=== PATIENT | female | born 1935 | race Caucasian/White ===

== ENCOUNTER 2018-02-22 14:09 | Inpatient (IN) ==
[2018-02-22] MEDS ORDERED: *HR* OxyCODONE Immed Rel 5 MG TABLET PO PRN (20:24)
[2018-02-22] MEDS: Famotidine 20 MG TABLET PO SCH (22:25)
[2018-02-22] MEDS: *HR* OxyCODONE Immed Rel 5 MG TABLET PO PRN (22:26)
[2018-02-22] MEDS: Latanoprost 2.5 ML BOTTLE BOTH EYES SCH (22:26)
[2018-02-23 05:16] LABS: INR 1.1
[2018-02-23 05:17] LABS: Basophils # 0.1 K/mcL (0.0-0.2); Basophils % 0.8 %; Eosinophils # 0.2 K/mcL (0.0-0.6); Eosinophils % 2.3 %; Hematocrit 35.9 % (35.3-44.9); Hemoglobin 12.1 g/dL (11.5-15.4); Immature Granulocytes % 0.5 % (0-4); Lymphocytes # 2.2 K/mcL (0.6-4.6); Lymphocytes % 25.2 %; Mean Corpuscular HGB Conc 33.7 g/dL (31.6-35.5); Mean Corpuscular Hemoglobin 33.2 pg (28.0-33.3); Mean Corpuscular Volume 98.6 fL (83.0-100.0); Mean Platelet Volume 10.8 fL (9.4-12.4); Monocytes % 11.3 %; Neutrophils # 5.2 K/mcL (1.6-8.9); Platelet Count 203 K/mcL (140-400); Red Blood Count 3.64 M/mcL (3.82-4.97); Segmented Neutrophils % 59.9 %
[2018-02-23 05:28] LABS: BUN/Creatinine Ratio 18 (6-26); Blood Urea Nitrogen 11 mg/dL (8-23); Carbon Dioxide 31 mEq/L (23-29); Chloride 100 mEq/L (98-107); Glucose 116 mg/dL (70-105); Osmolality,Calculated 282 (280-300); Potassium 4.2 mEq/L (3.5-5.1); Sodium 136 mEq/L (136-145); eGFR For Non-African Americans > 60 (> 60)
[2018-02-23] MEDS: *HR* OxyCODONE Immed Rel 5 MG TABLET PO PRN (06:44)
[2018-02-23] MEDS: Sennosides/Docusate Sodium TABLET PO SCH (08:12)
[2018-02-23] MEDS: Celecoxib 200 MG CAPSULE PO SCH (08:12)
[2018-02-23] MEDS: Lisinopril 20 MG TABLET PO SCH (08:13)
[2018-02-23] MEDS: Famotidine 20 MG TABLET PO SCH ×2 (08:13→20:41)
[2018-02-23] MEDS: Multivit/Ca/Min/Fe/FA 1 TAB TABLET PO SCH (08:13)
[2018-02-23] MEDS: CO Q10 100 MG PO SCH (08:13)
[2018-02-23] MEDS: Cholecalciferol (D-3) 1,000 UNIT TABLET PO SCH (08:13)
[2018-02-23] MEDS: (Glucosamine Sulfate Dipot Chlr [Glucosamine] 1,000 M) PO SCH (08:14)
--- NOTE | 2018-02-23 12:12 | Internal Med History&Physical ---
Addendum entered and electronically signed by Joselyn Phillip 02/23/18 18:26: I have personally performed a face to face evaluation on this patient. I have reviewed and agree with the care plan. She has had severe constipation and impaction before transfer. She would like enema. Will order this and increase her miralax. She is eating and denies abd pain. She is alert and cooperative. Original Note: Date of Encounter: 02/23/18 Time of Encounter: 12:11 Assessment and Plan (1) Status post reverse total replacement of left shoulder Current visit: Yes Status: Acute No acute issues. Patient admitted to this facility for further rehabilitation secondary to deconditioning of left shoulder after a total left shoulder replacement. When short surgical incision appears healthy. Patient currently has increased pain with activity noted during therapy, but states that her current pain medications have been effective. We will continue to evaluate patient's pain status. We will continue with current therapy (2) HTN (hypertension) Current visit: No Status: Chronic No acute issues. Vital signs are stable. We will continue with current medications. Qualifiers: Hypertension type: essential hypertension Qualified Code(s): I10 - Essential (primary) hypertension Internal Medicine - H&P: HPI Chief complaint: Left total shoulder replacement Admitted From: Hospital to Hospital Transfer Plans for Post Hospital Care: Home History of present illness: Ms. Robles is a 83 year old female who was admitted to this facility for further rehabilitation due to deconditioning related to a left total shoulder replacement. Patient also is here for pain management. Patient had a left total shoulder replacement was performed on 02/19/2018 and had a uneventful recovery [facility] Patient was transferred to this facility for further rehabilitation. Patient states she continues to have moderate pain to her left shoulder that intensifies during range of motion. A sharp remains nonweightbearing for the left shoulder but does have a series of exercises that she performs with physical therapy that increases her pain. Patient states that her pain is tolerable with current medications. Denies any other discomforts or shortness of breath. Past Med Surg Social Fam HX - Past Medical History Medical history: arthritis, CVA, glaucoma, hyperlipidemia, hypertension Additional medical history: Spastic bladder Psychiatric history: no psych history - Past Surgical History Additional surgical history: Left TSR, Right Hip - Social History Smoking Status: 2nd Hand Smoke Exposure Smokeless Tobacco Status: No Alcohol use: none Drug use: none - Family History Mother Living Status: Hx Family Cardiac Disorders: Yes Father Living Status: Hx Family Cardiac Disorders: Yes Internal Medicine - H&P: Meds Alendronate Sodium 70 mg PO MO 02/19/18 [History] Atorvastatin Calcium [Lipitor] 20 mg PO HS 02/19/18 [History] Celecoxib [Celebrex] 200 mg PO DAILY 02/19/18 [History] Cholecalciferol (D-3) [Vitamin D] 2,000 unit PO DAILY 02/19/18 [History] Clopidogrel [Plavix] 75 mg PO DAILY 02/19/18 [History] Glucosamine Sulfate Dipot Chlr [Glucosamine] 1,000 mg PO DAILY 02/19/18 [History] Latanoprost [Xalatan] 1 drop BOTH EYES HS 02/19/18 [History] Lisinopril [Zestril] 20 mg PO DAILY 02/19/18 [History] Loratadine [Allergy Relief] 10 mg PO DAILY 02/19/18 [History] Multivitamin [One Daily Essential] 1 tab PO DAILY 02/19/18 [History] Oxybutynin Chloride [Ditropan Xl] 10 mg PO DAILY 02/19/18 [History] Timolol Maleate 0.5% 1 drop BOTH EYES BID 02/19/18 [History] Ubidecarenone/Vit E Acetate [Co Q-10 100 mg Softgel] 1 cap PO DAILY 02/19/18 [History] OxyCODONE Immed Rel [Roxicodone 5 MG] 5 mg PO Q4HR PRN MDD PAin 02/22/18 [History] Allergy/AdvReac Type Severity Reaction Status Date / Time bromide salts Allergy Hives Verified 02/19/18 07:34 fentanyl AdvReac Rash Verified 02/19/18 07:34 All Systems PM: A 10-system review of systems was performed and is negative for pertinent findings except as documented above in the HPI. - Constitutional Constitutional: as per HPI, no chills, no fever(s), no night sweats - EENT Eyes: as per HPI, no change in vision, no discharge, no pain, no photophobia Ears: no ear discharge, no ear pain, no tinnitus Nose, mouth and throat: no dysphagia, no nasal discharge, no neck pain, no sore throat - Cardiovascular Cardiovascular ROS IM: as per HPI, no chest pain, no diaphoresis, no dyspnea, no lightheadedness, no palpitations, no syncope - Respiratory Respiratory: as per HPI, no cough, no dyspnea, no wheezing, no excessive phlegm production - Gastrointestinal Gastrointestinal: as per HPI, no abdominal pain, no diarrhea, no hematemesis, no hematochezia, no melena, no nausea, no vomiting - Genitourinary Genitourinary: as per HPI, no change in urinary stream, no dysuria, no flank pain, no hematuria - Musculoskeletal Musculoskeletal ROS IM: as per HPI, no numbness, no tingling - Integumentary Integumentary IM: as per HPI, no rash, no unusual bruising - Neurological Neurological ROS: no confusion, no convulsions, no focal weakness, no numbness, no tingling, no tremor(s) - Hematologic/Lymphatic Hematologic/Lymphatic: no easy bruising - Constitutional Vitals: Temp Pulse Resp BP Pulse Ox 97.9 F 75 116 122/76 100 02/23/18 11:58 02/23/18 11:58 02/23/18 11:58 02/23/18 11:58 02/23/18 11:58 General appearance: Present: A&O X 3, pleasant - Head Head exam: Present: atraumatic, normocephalic - Eye Eye exam: Present: PERRL, conjuntiva pink, sclera anicteric Pupils: Present: PERRL - Neck Neck exam general surgery: Present: supple, trachea midline. Absent: lymphadenopathy - Respiratory Respiratory exam: Present: CTAB. Absent: accessory muscle use, rales, rhonchi, wheezes - Cardiovascular Cardiovascular exam: Present: RRR, +S1, +S2. Absent: diastolic murmur, gallop, rubs, systolic murmur - GI/Abdominal GI/Abdominal exam: Present: normal bowel sounds, soft, no peritoneal signs. Absent: distended, tenderness - Extremities Exam Extremities exam: Present: warm, radial pulses palpable and symmetrical. Absent: calf tenderness, cyanotic, pedal edema Additional comments: Left shoulder remains slightly swollen with surgical incision appearing dry and intact. Left eye remains in a sling for nonweightbearing - Neurological Exam Neurological exam: Present: CN II-XII intact, oriented X3, no focal deficits. Absent: pronater drift, facial droop, speech deficit - Skin Skin exam: Present: dry, intact Internal Med - H&P Results - Labs CBC & Chem 7: 02/23/18 05:04 02/23/18 05:04 Labs: Short CBC 02/23/18 Range/Units 05:04 WBC 8.6 (4.3-11.1) K/mcL Hgb 12.1 (11.5-15.4) g/dL Hct 35.9 (35.3-44.9) % Plt Count 203 (140-400) K/mcL Neutrophils # 5.2 (1.6-8.9) K/mcL BMP 02/23/18 05:04 Sodium 136 Potassium 4.2 Chloride 100 Carbon Dioxide 31 H BUN 11 Creatinine 0.60 Glucose 116 H Calcium 9.0 - VTE Documentation of Mechanical Device: Graduated compression elastic hosiery
[2018-02-23] MEDS: Latanoprost 2.5 ML BOTTLE BOTH EYES SCH (20:46)
[2018-02-24] MEDS: Cholecalciferol (D-3) 1,000 UNIT TABLET PO SCH (08:06)
[2018-02-24] MEDS: Sennosides/Docusate Sodium TABLET PO SCH (08:07)
[2018-02-24] MEDS: Multivit/Ca/Min/Fe/FA 1 TAB TABLET PO SCH (08:07)
[2018-02-24] MEDS: Lisinopril 20 MG TABLET PO SCH (08:07)
[2018-02-24] MEDS: CO Q10 100 MG PO SCH (08:07)
[2018-02-24] MEDS: (Glucosamine Sulfate Dipot Chlr [Glucosamine] 1,000 M) PO SCH (08:07)
[2018-02-24] MEDS: Celecoxib 200 MG CAPSULE PO SCH (08:07)
[2018-02-24] MEDS: Famotidine 20 MG TABLET PO SCH ×2 (08:07→19:55)
[2018-02-24] MEDS: *HR* OxyCODONE Immed Rel 5 MG TABLET PO PRN (12:25)
[2018-02-24] MEDS: Psyllium 1 PACKET POWD.PACK PO SCH (19:59)
[2018-02-24] MEDS: Latanoprost 2.5 ML BOTTLE BOTH EYES SCH (19:59)
[2018-02-25 01:27] LABS: Bilirubin,Urine Negative (Negative); Blood,Urine Trace-lysed (Negative); Clarity,Urine Clear (Clear); Color,Urine Yellow (Yellow); Glucose,Urine (UA) Normal (Normal); Ketones,Urine Negative (Negative); Leukocyte Esterase,Urine Large (Negative); Nitrite,Urine Positive (Negative); Protein,Urine Negative (Neg-Trace); Urobilinogen,Urine Normal (Normal)
[2018-02-25 01:45] LABS: Bacteria,Urine Many per hpf (None-Few); RBC,Urine 0-3 per hpf (0-3); Squamous Epithelial Cell,Urine Few per lpf (None-Few); WBC,Urine 30-50 per hpf (0-3)
[2018-02-25] MEDS: *HR* OxyCODONE Immed Rel 5 MG TABLET PO PRN (04:34)
[2018-02-25 05:58] LABS: Thyroid Stimulating Hormone 2.065 mcIU/mL (0.340-5.600)
[2018-02-25] MEDS: Celecoxib 200 MG CAPSULE PO SCH (07:51)
[2018-02-25] MEDS: Sennosides/Docusate Sodium TABLET PO SCH (07:51)
[2018-02-25] MEDS: Lisinopril 20 MG TABLET PO SCH (07:51)
[2018-02-25] MEDS: Famotidine 20 MG TABLET PO SCH ×2 (07:51→20:01)
[2018-02-25] MEDS: Psyllium 1 PACKET POWD.PACK PO SCH ×3 (07:52→20:10)
[2018-02-25] MEDS: (Glucosamine Sulfate Dipot Chlr [Glucosamine] 1,000 M) PO SCH (07:52)
[2018-02-25] MEDS: Cholecalciferol (D-3) 1,000 UNIT TABLET PO SCH (07:52)
[2018-02-25] MEDS: CO Q10 100 MG PO SCH (07:52)
[2018-02-25] MEDS: Multivit/Ca/Min/Fe/FA 1 TAB TABLET PO SCH (07:52)
--- NOTE | 2018-02-25 11:16 | Internal Med Progress Note ---
Date of Encounter: 02/24/18 Time of Encounter: 16:00 - Subjective Interval history: INTERVAL HISTORY: 83 YO WF admit to rehab unit 02-23 after let shoulder replaced. She states is fatigued and remains very constipated. She is able to eat and is not vomiting, passing gas. Says she tends toward constipation. Says she was impacted at hospital prior to transfer and was disimpacted. Denies bleeding or abd pain just feels very full. She is alert and oriented and soft spoken. She denies chills no fevers. Pain is controlled She is participating in therapy. Assessment and Plan (1) Status post reverse total replacement of left shoulder with deconditioning Current visit: Yes Status: Acute No acute issues. Patient admitted to this facility for further rehabilitation secondary to deconditioning of left shoulder after a total left shoulder replacement. When short surgical incision appears healthy. Patient currently has increased pain with activity noted but states that her current pain medications have been effective. We will continue to evaluate patient's pain s tatus. She is improving. We will continue with current therapy (2) HTN (hypertension) Current visit: No Status: Chronic stable No acute issues. Vital signs are stable. We will continue with current medications. Qualifiers: Hypertension type: essential hypertension Qualified Code(s): I10 - Essential (primary) hypertension (3) Constipation acute on chronic recent impaction resolved benign abd will increase miralax will use soap suds enema ( pt reports fleet ineffective) if not result, will order xray abd (4) bladder irritation says hx of spasm uses ditropan discussed will order urinalysis and culture Allergy/AdvReac Type Severity Reaction Status Date / Time bromide salts Allergy Hives Verified 02/19/18 07:34 fentanyl AdvReac Rash Verified 02/19/18 07:34 EXAM General appearance: Present: A&O X 3, pleasant - Head Head exam: Present: atraumatic, normocephalic - Eye Eye exam: Present: PERRL, conjuntiva pink, sclera Pupils: Present: PERRL - Neck Neck exam general surgery: Present: supple, trachea midline. Absent: lymphadenopathy - Respiratory Respiratory exam: Present: CTAB. Absent: accessory muscle use, rales, rhonchi, wheezes - Cardiovascular Cardiovascular exam: Present: RRR, +S1, +S2. Absent: diastolic murmur, gallop, rubs, systolic murmur - GI/Abdominal GI/Abdominal exam: Present: hypo l bowel sounds, soft, no peritoneal signs. Absent: distended, tenderness - Extremities Exam Extremities exam: Present: warm, radial pulses palpable and symmetrical. Absent: calf tenderness, cyanotic, pedal edema Additional comments: Left shoulder : surgical incision appearing dry and intact. - Neurological Exam Neurological exam: Present: CN II-XII intact, oriented X3, no focal deficits. Absent: pronater drift, facial droop, speech deficit - Skin Skin exam: Present: dry, intact - Constitutional Vitals: Temp Pulse Resp BP Pulse Ox 98.3 F 81 18 159/72 95 02/25/18 07:24 02/25/18 07:24 02/25/18 07:24 02/25/18 07:24 02/25/18 07:24 General appearance: Present: A&O X 3, pleasant Internal Medicine: Result - Labs CBC & Chem 7: 02/23/18 05:04 02/23/18 05:04 Labs: Urine 02/25/18 Range/Units 00:42 Urine Color Yellow (Yellow) Urine Clarity Clear (Clear) Urine pH 7.0 (5.0-8.0) pH Units Ur Specific [place] 1.010 (1.010-1.025) Urine Protein Negative (Neg-Trace) mg/dL Urine Glucose (UA) Normal (Normal) mg/dL - ABG Interpretation ABG results: PT/INR, D-dimer PT 12.0 Seconds (9.4-12.1) 02/23/18 05:04 - VTE Documentation of Mechanical Device: Graduated compression elastic hosiery Consult Discharge Plan - Plan Referrals: Jenny Mccann DO [Primary Care Provider] -
--- NOTE | 2018-02-25 11:20 | Internal Med Progress Note ---
Date of Encounter: 02/25/18 Time of Encounter: 11:17 - Subjective Interval history: INTERVAL HISTORY: 83 YO WF admit to rehab unit 02-23 after let shoulder replaced. She states her constipation is improved she had good relief from soap suds enema.. She is able to eat and is not vomiting, passing gas. Says she tends toward constipation. Says she was impacted at hospital prior to transfer and was disimpacted. Denies bleeding or abd pain . Doing better today. Still with dysuria. UA postitive. culture pend. She is alert and oriented and soft spoken. She denies chills no fevers. Shoulder Pain is controlled She is participating in therapy. Assessment and Plan (1) Status post reverse total replacement of left shoulder with deconditioning Current visit: Yes Status: Acute No acute issues. Patient admitted to this facility for further rehabilitation secondary to deconditioning of left shoulder after a total left shoulder replacement. When short surgical incision appears healthy. Patient currently has increased pain with activity noted but states that her current pain medications have been effective. We will continue to evaluate patient's pain status. She is improving. We will continue with current therapy (2) HTN (hypertension) Current visit: No Status: Chronic stable No acute issues. Vital signs are stable. We will continue with current medications. Qualifiers: Hypertension type: essential hypertension Qualified Code(s): I10 - Essential (primary) hypertension (3) Constipation acute on chronic recent impaction resolved benign abd doing well with increase miralax will add fiber had relief from soap suds enema will not repeat for now pt appetite very good today (4) bladder irritation says hx of spasm uses ditropan discussed had pos urinalysis and culture pend will start cefdiner 4 days Allergy/AdvReac Type Severity Reaction Status Date / Time bromide salts Allergy Hives Verified 02/19/18 07:34 fentanyl AdvReac Rash Verified 02/19/18 07:34 EXAM General appearance: Present: frail WF thin A&O X 3, pleasant up in chair - Head Head exam: Present: atraumatic, normocephalic - Eye Eye exam: Present: PERRL, conjuntiva pink, sclera Pupils: Present: PERRL - Neck Neck exam general surgery: Present: supple, trachea midline. Absent: lymphadenopathy - Respiratory Respiratory exam: Present: CTAB. Absent: accessory muscle use, rales, rhonchi, wheezes - Cardiovascular Cardiovascular exam: Present: RRR, +S1, +S2. Absent: diastolic murmur, gallop, rubs, systolic murmur - GI/Abdominal GI/Abdominal exam: Present: hypo l bowel sounds, soft, no peritoneal signs. Absent: distended, tenderness - Extremities Exam Extremities exam: Present: warm, radial pulses palpable and symmetrical. Absent: calf tenderness, cyanotic, pedal edema Additional comments: Left shoulder : surgical incision appearing dry and intact. - Neurological Exam Neurological exam: Present: CN II-XII intact, oriented X3, no focal deficits. Absent: pronater drift, facial droop, speech deficit - Skin Skin exam: Present: dry, intact - Constitutional Vitals: Temp Pulse Resp BP Pulse Ox 98.3 F 81 18 159/72 95 02/25/18 07:24 02/25/18 07:24 02/25/18 07:24 02/25/18 07:24 02/25/18 07:24 General appearance: Present: A&O X 3, pleasant Internal Medicine: Result - Labs CBC & Chem 7: 02/23/18 05:04 02/23/18 05:04 Labs: Urine 02/25/18 Range/Units 00:42 Urine Color Yellow (Yellow) Urine Clarity Clear (Clear) Urine pH 7.0 (5.0-8.0) pH Units Ur Specific [place] 1.010 (1.010-1.025) Urine Protein Negative (Neg-Trace) mg/dL Urine Glucose (UA) Normal (Normal) mg/dL - ABG Interpretation ABG results: PT/INR, D-dimer PT 12.0 Seconds (9.4-12.1) 02/23/18 05:04 - VTE Documentation of Mechanical Device: Graduated compression elastic hosiery Consult Discharge Plan - Plan Referrals: Jenny Mccann DO [Primary Care Provider] -
[2018-02-25] MEDS: Lactobacillus 1 EACH CAP.SPRINK PO SCH ×2 (12:02→20:00)
[2018-02-25] MEDS: Cefdinir 300 MG CAPSULE PO SCH ×2 (12:02→20:00)
[2018-02-25] MEDS: Ascorbic Acid 500 MG TABLET PO SCH ×2 (12:02→20:12)
[2018-02-25] MEDS: Latanoprost 2.5 ML BOTTLE BOTH EYES SCH (20:09)
[2018-02-26] MEDS: *HR* OxyCODONE Immed Rel 5 MG TABLET PO PRN ×4 (02:27→22:15)
[2018-02-26 05:19] LABS: Basophils # 0.1 K/mcL (0.0-0.2); Basophils % 0.7 %; Eosinophils # 0.3 K/mcL (0.0-0.6); Eosinophils % 2.3 %; Hematocrit 34.5 % (35.3-44.9); Hemoglobin 11.7 g/dL (11.5-15.4); Immature Granulocytes % 0.8 % (0-4); Lymphocytes # 2.2 K/mcL (0.6-4.6); Lymphocytes % 19.2 %; Mean Corpuscular HGB Conc 33.9 g/dL (31.6-35.5); Mean Corpuscular Hemoglobin 33.3 pg (28.0-33.3); Mean Corpuscular Volume 98.3 fL (83.0-100.0); Mean Platelet Volume 10.6 fL (9.4-12.4); Monocytes % 9.1 %; Neutrophils # 7.6 K/mcL (1.6-8.9); Platelet Count 286 K/mcL (140-400); Red Blood Count 3.51 M/mcL (3.82-4.97); Red Cell Distribution Width 13.2 % (11.5-14.5); Segmented Neutrophils % 67.9 %
[2018-02-26 05:26] LABS: Prothrombin Time 11.4 Seconds (9.4-12.1)
[2018-02-26 05:41] LABS: BUN/Creatinine Ratio 29 (6-26); Blood Urea Nitrogen 14 mg/dL (8-23); Calcium 8.8 mg/dL (8.6-10.3); Carbon Dioxide 27 mEq/L (23-29); Chloride 102 mEq/L (98-107); Glucose 114 mg/dL (70-105); Osmolality,Calculated 281 (280-300); Potassium 3.9 mEq/L (3.5-5.1); Sodium 135 mEq/L (136-145); eGFR For Non-African Americans > 60 (> 60)
[2018-02-26] MEDS: Celecoxib 200 MG CAPSULE PO SCH (08:10)
[2018-02-26] MEDS: Sennosides/Docusate Sodium TABLET PO SCH (08:10)
[2018-02-26] MEDS: Lactobacillus 1 EACH CAP.SPRINK PO SCH ×2 (08:10→22:15)
[2018-02-26] MEDS: Cholecalciferol (D-3) 1,000 UNIT TABLET PO SCH (08:10)
[2018-02-26] MEDS: Multivit/Ca/Min/Fe/FA 1 TAB TABLET PO SCH (08:10)
[2018-02-26] MEDS: Cefdinir 300 MG CAPSULE PO SCH ×2 (08:10→22:15)
[2018-02-26] MEDS: Ascorbic Acid 500 MG TABLET PO SCH ×2 (08:11→22:15)
[2018-02-26] MEDS: Lisinopril 20 MG TABLET PO SCH (08:11)
[2018-02-26] MEDS: Famotidine 20 MG TABLET PO SCH ×2 (08:11→22:15)
[2018-02-26] MEDS: CO Q10 100 MG PO SCH (08:12)
[2018-02-26] MEDS: Psyllium 1 PACKET POWD.PACK PO SCH ×3 (08:12→22:15)
[2018-02-26] MEDS: (Glucosamine Sulfate Dipot Chlr [Glucosamine] 1,000 M) PO SCH (08:12)
--- NOTE | 2018-02-26 15:14 | Internal Med Progress Note ---
Date of Encounter: 02/26/18 Time of Encounter: 15:11 - Assessment and plan (1) Status post reverse total replacement of left shoulder Current Visit: Yes Status: Acute Assessment and plan: Continue PT and OT. Will follow progress. Pain controlled with current medication. Continue sling to left shoulder\arm. Follow up with ortho as scheduled. (2) HTN (hypertension) Current Visit: Yes Status: Chronic Assessment and plan: Controlled with current medication. Monitor blood pressure. Qualifiers: Hypertension type: essential hypertension Qualified Code(s): I10 - Essential (primary) hypertension - Time Spent With Patient less than 15 minutes - Subjective Interval history: Dissipating well with therapy. Contact guard to ambulated hundred and 50 feet. States pain is controlled with current pain medication. Maintaining appetite and hydration. Last bowel movement was yesterday. Denies fever, chills, nausea vomiting or diarrhea. Denies shortness of breath or chest pain. - Constitutional Vitals: Temp Pulse Resp BP Pulse Ox 97.6 F 76 17 136/80 97 02/26/18 07:13 02/26/18 07:13 02/26/18 07:13 02/26/18 07:13 02/26/18 07:13 General appearance: Present: cooperative, A&O X 3, pleasant, no acute distress, answers questions appropriately - Head Head exam: Present: atraumatic, normocephalic - Eye Eye exam: Present: PERRL, conjuntiva pink, sclera anicteric Pupils: Present: PERRL - Neck Neck exam general surgery: Present: supple, trachea midline. Absent: lymphaden opathy - Respiratory Respiratory exam: Present: CTAB. Absent: accessory muscle use, rales, rhonchi, wheezes - Cardiovascular Cardiovascular exam: Present: RRR, +S1, +S2. Absent: diastolic murmur, gallop, rubs, systolic murmur - GI/Abdominal GI/Abdominal exam: Present: normal bowel sounds, soft, no peritoneal signs. Absent: distended, tenderness - Extremities Exam Extremities exam: Present: warm, radial pulses palpable and symmetrical. A bsent: calf tenderness, cyanotic, pedal edema Additional comments: Left arm in sling - Neurological Exam Neurological exam: Present: CN II-XII intact, oriented X3, no focal deficits. Absent: pronater drift, facial droop, speech deficit - Skin Skin exam: Present: dry, intact Internal Medicine: Result - Labs CBC & Chem 7: 02/26/18 04:17 02/26/18 04:17 Labs: Short CBC 02/26/18 Range/Units 04:17 WBC 11.2 H (4.3-11.1) K/mcL Hgb 11.7 (11.5-15.4) g/dL Hct 34.5 L (35.3-44.9) % Plt Count 286 (140-400) K/mcL Neutrophils # 7.6 (1.6-8.9) K/mcL BMP 02/26/18 04:17 Sodium 135 L Potassium 3.9 Chloride 102 Carbon Dioxide 27 BUN 14 Creatinine 0.48 L Glucose 114 H Calcium 8.8 - ABG Interpretation ABG results: PT/INR, D-dimer PT 11.4 Seconds (9.4-12.1) 02/26/18 04:17 - VTE Documentation of Mechanical Device: Graduated compression elastic hosiery Consult Discharge Plan - Plan Referrals: Jenny Mccann DO [Primary Care Provider] -
[2018-02-26] MEDS: Latanoprost 2.5 ML BOTTLE BOTH EYES SCH (22:20)
[2018-02-27] MEDS: *HR* OxyCODONE Immed Rel 5 MG TABLET PO PRN (06:30)
--- NOTE | 2018-02-27 09:14 | Internal Med Progress Note ---
Date of Encounter: 02/27/18 Time of Encounter: 09:12 - Assessment and plan (1) Status post reverse total replacement of left shoulder Current Visit: Yes Status: Acute Assessment and plan: Continue PT and OT. Will follow progress. Pain controlled with current medication. Continue sling to left shoulder\arm. Follow up with ortho as scheduled. (2) HTN (hypertension) Current Visit: Yes Status: Chronic Assessment and plan: Controlled with current medication. Monitor blood pressure. Qualifiers: Hypertension type: essential hypertension Qualified Code(s): I10 - Essential (primary) hypertension - Time Spent With Patient less than 15 minutes - Subjective Interval history: participating well with therapy. Contact guard to ambulate with cane in hallway with therapy. States pain is controlled with current pain medication. Maintaining appetite and hydration. Last bowel movement was yesterday. Denies fever, chills, nausea vomiting or diarrhea. Denies shortness of breath or chest pain. concerned about hair loss. thyroid labs normal. discussed this is likely due to recent steroid use and anesthesia. - Constitutional Vitals: Temp Pulse Resp BP Pulse Ox 98.2 F 82 16 147/89 97 02/27/18 06:51 02/27/18 06:51 02/27/18 06:51 02/27/18 06:51 02/27/18 06:51 General appearance: Present: cooperative, A&O X 3, pleasant, no acute distress, answers questions appropriately - Head Head exam: Present: atraumatic, normocephalic - Eye Eye exam: Present: PERRL, conjuntiva pink, sclera anicteric Pupils: Present: PERRL - Neck Neck exam general surgery: Present: supple, trachea midline. Absent: lymphadenopathy - Respiratory Respiratory exam: Present: CTAB. Absent: accessory muscle use, rales, rhonchi, wheezes - Cardiovascular Cardiovascular exam: Present: RRR, +S1, +S2. Absent: diastolic murmur, gallop, rubs, systolic murmur - GI/Abdominal GI/Abdominal exam: Present: normal bowel sounds, soft, no peritoneal signs. Absent: distended, tenderness - Extremities Exam Extremities exam: Present: warm, radial pulses palpable and symmetrical. Absent: calf tenderness, cyanotic, pedal edema Additional comments: left arm in sling - Neurological Exam Neurological exam: Present: CN II-XII intact, oriented X3, no focal deficits. Absent: pronater drift, facial droop, speech deficit - Skin Skin exam: Present: dry, intact Internal Medicine: Result - Labs CBC & Chem 7: 02/26/18 04:17 02/26/18 04:17 Labs: Urine 02/25/18 Range/Units 00:42 Urine Color Yellow (Yellow) Urine Clarity Clear (Clear) Urine pH 7.0 (5.0-8.0) pH Units Ur Specific [place] 1.010 (1.010-1.025) Urine Protein Negative (Neg-Trace) mg/dL Urine Glucose (UA) Normal (Normal) mg/dL - ABG Interpretation ABG results: PT/INR, D-dimer PT 11.4 Seconds (9.4-12.1) 02/26/18 04:17 - VTE Documentation of Mechanical Device: Graduated compression elastic hosiery Consult Discharge Plan - Plan Referrals: Jenny Mccann DO [Primary Care Provider] -
[2018-02-27] MEDS: Cefdinir 300 MG CAPSULE PO SCH ×2 (09:37→20:21)
[2018-02-27] MEDS: Multivit/Ca/Min/Fe/FA 1 TAB TABLET PO SCH (09:37)
[2018-02-27] MEDS: Celecoxib 200 MG CAPSULE PO SCH (09:37)
[2018-02-27] MEDS: Sennosides/Docusate Sodium TABLET PO SCH (09:37)
[2018-02-27] MEDS: Psyllium 1 PACKET POWD.PACK PO SCH ×3 (09:37→20:26)
[2018-02-27] MEDS: Lactobacillus 1 EACH CAP.SPRINK PO SCH ×2 (09:37→20:20)
[2018-02-27] MEDS: Lisinopril 20 MG TABLET PO SCH (09:38)
[2018-02-27] MEDS: Famotidine 20 MG TABLET PO SCH ×2 (09:38→20:22)
[2018-02-27] MEDS: Cholecalciferol (D-3) 1,000 UNIT TABLET PO SCH (09:38)
[2018-02-27] MEDS: Ascorbic Acid 500 MG TABLET PO SCH ×2 (09:39→20:23)
[2018-02-27] MEDS: CO Q10 100 MG PO SCH (09:41)
[2018-02-27] MEDS: (Glucosamine Sulfate Dipot Chlr [Glucosamine] 1,000 M) PO SCH (09:41)
[2018-02-27] MEDS: Latanoprost 2.5 ML BOTTLE BOTH EYES SCH (20:25)
[2018-02-28] MEDS: *HR* OxyCODONE Immed Rel 5 MG TABLET PO PRN (03:04)
[2018-02-28] MEDS: Psyllium 1 PACKET POWD.PACK PO SCH ×3 (08:25→20:03)
[2018-02-28] MEDS: Sennosides/Docusate Sodium TABLET PO SCH (08:27)
[2018-02-28] MEDS: Famotidine 20 MG TABLET PO SCH ×2 (08:44→19:58)
[2018-02-28] MEDS: (Glucosamine Sulfate Dipot Chlr [Glucosamine] 1,000 M) PO SCH (08:44)
[2018-02-28] MEDS: CO Q10 100 MG PO SCH (08:44)
[2018-02-28] MEDS: Cefdinir 300 MG CAPSULE PO SCH ×2 (08:45→19:57)
[2018-02-28] MEDS: Lactobacillus 1 EACH CAP.SPRINK PO SCH ×2 (08:45→19:57)
[2018-02-28] MEDS: Cholecalciferol (D-3) 1,000 UNIT TABLET PO SCH (08:45)
[2018-02-28] MEDS: Lisinopril 20 MG TABLET PO SCH (08:45)
[2018-02-28] MEDS: Ascorbic Acid 500 MG TABLET PO SCH ×2 (08:45→19:57)
[2018-02-28] MEDS: Celecoxib 200 MG CAPSULE PO SCH (08:46)
[2018-02-28] MEDS: Multivit/Ca/Min/Fe/FA 1 TAB TABLET PO SCH (08:46)
--- NOTE | 2018-02-28 10:40 | Psychological Evaluation ---
Date of Encounter: 02/28/18 Time of Encounter: 09:30 History of Present Illness History of present illness: Ms. Robles is a 83 year old female admitted to this facility for further rehabilitation secondary to deconditioning of left shoulder after a total left shoulder replacement. Home Medications and Allergies Alendronate Sodium 70 mg PO MO 02/19/18 [History] Atorvastatin Calcium [Lipitor] 20 mg PO HS 02/19/18 [History] Celecoxib [Celebrex] 200 mg PO DAILY 02/19/18 [History] Cholecalciferol (D-3) [Vitamin D] 2,000 unit PO DAILY 02/19/18 [History] Clopidogrel [Plavix] 75 mg PO DAILY 02/19/18 [History] Glucosamine Sulfate Dipot Chlr [Glucosamine] 1,000 mg PO DAILY 02/19/18 [History] Latanoprost [Xalatan] 1 drop BOTH EYES HS 02/19/18 [History] Lisinopril [Zestril] 20 mg PO DAILY 02/19/18 [History] Loratadine [Allergy Relief] 10 mg PO DAILY 02/19/18 [History] Multivitamin [One Daily Essential] 1 tab PO DAILY 02/19/18 [History] Oxybutynin Chloride [Ditropan Xl] 10 mg PO DAILY 02/19/18 [History] Timolol Maleate 0.5% 1 drop BOTH EYES BID 02/19/18 [History] Ubidecarenone/Vit E Acetate [Co Q-10 100 mg Softgel] 1 cap PO DAILY 02/19/18 [History] OxyCODONE Immed Rel [Roxicodone 5 MG] 5 mg PO Q4HR PRN MDD PAin 02/22/18 [History] Allergy/AdvReac Type Severity Reaction Status Date / Time bromide salts Allergy Hives Verified 02/19/18 07:34 fentanyl AdvReac Rash Verified 02/19/18 07:34 Social History - Social History Social History: Single entire life. Lives alone in parents home. Has 1 living sister and several nieces and nephews that she is close to. 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 Did state she has had many falls and head hits with no LOC. Notes she has been slowing down last several years around home. She is nervous for DC because of fear of re injuring shoulder and getting therapy needed to get as much strength etc in that shoulder. Plans to go to sister's home upon discharge until able to care for self independently. - Tobacco Use Smoking Status: Never smoker Smokeless Tobacco Status: No Have you smoked in the last 12 months: No - Alcohol Use Alcohol Use: none - Drug Use Drug Use: none Cognitive/Emotional Assessment - Cognitive Ability Abstract Thinking Ability: No Deficits Noted Attention Span Ability: Capable of Focused Attention, Capable of Sustained Attention Language Function Ability: No Deficits Noted Verbal Communication Ability: Conversational Style Problem Solving Ability: Able To Solve Simple Problems Safety Awareness: Patient Is Aware of Their Safety Level of Alertness: Alert Memory Description: Recent Intact, Remote Intact, Immediate Intact Ability to Follow Directions: Good Speech Pattern: Normal rate, Normal rhythm Thought Process: Logical Calculations: Able to add simple combinations Additional Findings: Able to perform 4 digits forward; 4 digits backward; 3/3 words immediately and 2/3 after 5 mins; OX3; knew pres, previous pres, and gov.; Serial 3's from 20 no problem. - Emotional Status Mood Description: Depressed, Anxious Affect Description: Full range Coping Ability: Verbalizes positive coping skills Additional Findings: Stated sleep issue due to spastic bladder thus feels fatigue and not able to think as clearly. Additionally, notes irritability due to fatigue. Does well with coaxing to try and time to respond. Assessment & Plan - Diagnosis (1) Adjustment disorder with mixed anxiety and depressed mood - Prognosis Prognosis: Good - Treatment Plan Treatment Plan/Recommendations: No further therapy warranted. Procedures - Intervention Interventions: Cognitive/Behavioral Therapy - Participants Therapy Participant: Patient - Session Time Session Start Time: 09:30 Session Stop Time: 10:00
--- NOTE | 2018-02-28 13:16 | Internal Med Progress Note ---
Date of Encounter: 02/28/18 Time of Encounter: 13:15 - Assessment and plan (1) Status post reverse total replacement of left shoulder Current Visit: Yes Status: Acute Assessment and plan: Continue PT and OT. Will follow progress. Pain controlled with current medication. Continue sling to left shoulder\arm. Follow up with ortho as scheduled. (2) HTN (hypertension) Current Visit: Yes Status: Chronic Assessment and plan: Controlled with current medication. Monitor blood pressure. Qualifiers: Hypertension type: essential hypertension Qualified Code(s): I10 - Essential (primary) hypertension - Time Spent With Patient less than 15 minutes - Subjective Interval history: participating well with therapy. Contact guard to ambulate with cane in hallway with therapy. States pain is controlled with current pain medication. Maintaining appetite and hydration. Last bowel movement was yesterday. Denies fever, chills, nausea vomiting or diarrhea. Denies shortness of breath or chest pain. Scheduled for discharge to home with sister tomorrow. - Constitutional Vitals: Temp Pulse Resp BP Pulse Ox 97.7 F 67 16 142/84 98 02/28/18 06:52 02/28/18 06:52 02/28/18 06:52 02/28/18 06:52 02/28/18 06:52 General appearance: Present: cooperative, A&O X 3, pleasant, no acute distress, answers questions appropriately - Head Head exam: Present: atraumatic, normocephalic - Eye Eye exam: Present: PERRL, conjuntiva pink, sclera anicteric Pupils: Present: PERRL - Neck Neck exam general surgery: Present: supple, trachea midline. Absent: lymphadenopathy - Respiratory Respiratory exam: Present: CTAB. Absent: accessory muscle use, rales, rhonchi, wheezes - Cardiovascular Cardiovascular exam: Present: RRR, +S1, +S2. Absent: diastolic murmur, gallop, rubs, systolic murmur - GI/Abdominal GI/Abdominal exam: Present: normal bowel sounds, soft, no peritoneal signs. Absent: distended, tenderness - Extremities Exam Extremities exam: Present: warm, radial pulses palpable and symmetrical. Absent: calf tenderness, cyanotic, pedal edema - Neurological Exam Neurological exam: Present: CN II-XII intact, oriented X3, no focal deficits. Absent: pronater drift, facial droop, speech deficit - Skin Skin exam: Present: dry, intact Internal Medicine: Result - Labs CBC & Chem 7: 02/26/18 04:17 02/26/18 04:17 - ABG Interpretation ABG results: PT/INR, D-dimer PT 11.4 Seconds (9.4-12.1) 02/26/18 04:17 - VTE Documentation of Mechanical Device: Graduated compression elastic hosiery Consult Discharge Plan - Plan Referrals: Jenny Mccann DO [Primary Care Provider] -
[2018-02-28] MEDS: Latanoprost 2.5 ML BOTTLE BOTH EYES SCH (20:06)
[2018-03-01 07:55] VITALS: BP 174/91
[2018-03-01] MEDS: Lactobacillus 1 EACH CAP.SPRINK PO SCH (08:12)
[2018-03-01] MEDS: Lisinopril 20 MG TABLET PO SCH (08:12)
[2018-03-01] MEDS: Ascorbic Acid 500 MG TABLET PO SCH (08:12)
[2018-03-01] MEDS: Multivit/Ca/Min/Fe/FA 1 TAB TABLET PO SCH (08:13)
[2018-03-01] MEDS: Sennosides/Docusate Sodium TABLET PO SCH (08:13)
[2018-03-01] MEDS: Famotidine 20 MG TABLET PO SCH (08:13)
[2018-03-01] MEDS: Celecoxib 200 MG CAPSULE PO SCH (08:13)
[2018-03-01] MEDS: Cholecalciferol (D-3) 1,000 UNIT TABLET PO SCH (08:13)
[2018-03-01] MEDS: Cefdinir 300 MG CAPSULE PO SCH (08:13)
[2018-03-01] MEDS: Psyllium 1 PACKET POWD.PACK PO SCH (08:14)
[2018-03-01] MEDS: CO Q10 100 MG PO SCH (08:14)
[2018-03-01] MEDS: (Glucosamine Sulfate Dipot Chlr [Glucosamine] 1,000 M) PO SCH (08:14)
--- NOTE | 2018-03-01 11:41 | Discharge Summary ---
Orders not resulted at time of discharge: Pending orders 03/05/18 04:00 BMP [Basic Metabolic Panel] MO CBC [Complete Blood Count] [HEME] MO PT/INR [Prothrombin Time INR] [COAG] MO Date of Encounter: 03/01/18 Time of Encounter: 11:38 - Discharge Diagnosis (1) Status post reverse total replacement of left shoulder Priority: Primary Status: Acute Comments: No acute issues during her stay at this facility. Left shoulder surgical incision appears dry and intact with no erythema or ecchymosis noted. Patient continues to have moderate pain with range of motion of left shoulder. Patient has follow-up with orthopedic surgeon today. We will continue with physical therapy after discharge by home health services. (2) HTN (hypertension) Priority: Secondary Status: Chronic Comments: No acute issues during her stay at this facility. Vital signs stable. We will continue with current home medications. Qualifiers: Hypertension type: essential hypertension Qualified Code(s): I10 - Essential (primary) hypertension Hospital course: Ms. Robles is a 83 year old female, who was admitted to this facility for further rehabilitation due to deconditioning related to a left total shoulder replacement. Patient also is here for pain management. Patient had a left total shoulder replacement was performed on 02/19/2018 and had a uneventful recovery during her stay at an area hospital. Patient was transferred to this facility for further rehabilitation. Patient states she continues to have moderate pain to her left shoulder that intensifies during range of motion, which has been controlled with current oral pain medications. Patient reportedly progressed well with physical therapy during her stay at facility. She has follow-up with orthopedic surgeon today. Surgical incision appears healthy with dressing dry and intact. No erythema or ecchymosis noted to left shoulder. We will continue follow-up with PCP in orthopedic surgeon. Patient to continue with physical therapy per home health services. Discharge discussed with: patient Time spent discussing smoking cessation with patient: 3 to 10 minutes - Time Spent with Patient Total time spent providing and/or coordinating discharge services: Less than 30 minutes - Discharge Medications Home Medications: Alendronate Sodium 70 mg PO MO 02/19/18 [History] Atorvastatin Calcium [Lipitor] 20 mg PO HS 02/19/18 [History] Celecoxib [Celebrex] 200 mg PO DAILY 02/19/18 [History] Cholecalciferol (D-3) [Vitamin D] 2,000 unit PO DAILY 02/19/18 [History] Clopidogrel [Plavix] 75 mg PO DAILY 02/19/18 [History] Glucosamine Sulfate Dipot Chlr [Glucosamine] 1,000 mg PO DAILY 02/19/18 [History] Latanoprost [Xalatan] 1 drop BOTH EYES HS 02/19/18 [History] Lisinopril [Zestril] 20 mg PO DAILY 02/19/18 [History] Loratadine [Allergy Relief] 10 mg PO DAILY 02/19/18 [History] Multivitamin [One Daily Essential] 1 tab PO DAILY 02/19/18 [History] Oxybutynin Chloride [Ditropan Xl] 10 mg PO DAILY 02/19/18 [History] Timolol Maleate 0.5% 1 drop BOTH EYES BID 02/19/18 [History] Ubidecarenone/Vit E Acetate [Co Q-10 100 mg Softgel] 1 cap PO DAILY 02/19/18 [History] OxyCODONE Immed Rel [Roxicodone 5 MG] 5 mg PO Q4HR PRN MDD PAin 02/22/18 [History] Allergies/Adverse Reactions: Allergy/AdvReac Type Severity Reaction Status Date / Time bromide salts Allergy Hives Verified 02/19/18 07:34 fentanyl AdvReac Rash Verified 02/19/18 07:34 Date of admission: 02/22/18 19:07 Primary care physician: Ayesha Aranda Consults: 02/22/18 20:17 Consult to Occupational Therapy [CONS] Routine Comment: Evaluate, develop and implement POC Reason for Consult: eval / tx Does patient have active BEDREST order?: No Is patient medically & hemodynamically stable?: Yes Patient assessed for mobility or mobilized this visit?: No Consult to Physical Medicine/Rehab [CONS] Routine Reason for Consult: Rehab pt. s/p Left TSR (Reverse [place]) Call Completed: No Consult to Physical Therapy [CONS] Routine Comment: Evaluate, develop and implement POC Reason for Consult: eval / tx Does patient have active BEDREST order?: No Is patient medically & hemodynamically stable?: Yes Patient assessed for mobility or mobilized this visit?: No Consult to Recreational Therapy [CONS] Routine Comment: Evaluate, develop and implement POC Consult to [employer] [CONS] Routine Reason for SW Consult: d/c planning 02/27/18 14:40 Consult to Psychology [CONS] Routine Consulting Provider: Brooke Barbour Reason for Consult: psy consult Time Notified: 15:00 Call Completed: Yes Discharging clinician: Jose Valdez - Constitutional Vitals: Temp Pulse Resp BP Pulse Ox 98.3 F 67 16 174/91 97 03/01/18 07:54 03/01/18 07:54 03/01/18 07:54 03/01/18 07:54 03/01/18 07:54 General appearance: Present: cooperative, A&O X 3, pleasant, no acute distress, answers questions appropriately - Head Head exam: Present: atraumatic, normocephalic - Eye Eye exam: Present: PERRL, conjuntiva pink, sclera anicteric Pupils: Present: PERRL - Neck Neck exam general surgery: Present: supple, trachea midline. Absent: lymphadenopathy - Respiratory Respiratory exam: Present: CTAB. Absent: accessory muscle use, rales, rhonchi, wheezes - Cardiovascular Cardiovascular exam: Present: RRR, +S1, +S2. Absent: diastolic murmur, gallop, rubs, systolic murmur - GI/Abdominal GI/Abdominal exam: Present: normal bowel sounds, soft, no peritoneal signs. Absent: distended, tenderness - Extremities Exam Extremities exam: Present: warm, radial pulses palpable and symmetrical. Absent: calf tenderness, cyanotic, pedal edema Additional comments: Left shoulder with anterior dressing that is dry and intact. Surgical incision appears to be healing well. No ecchymosis, edema or erythema noted. Left arm remains in sling due to weightbearing limitations - Neurological Exam Neurological exam: Present: CN II-XII intact, oriented X3, no focal deficits. Absent: pronater drift, facial droop, speech deficit - Skin Skin exam: Present: dry, intact - Patient Status Disposition: Home Health Service Condition: Good Functional capacity at discharge: independent ambulation Overall status at discharge: patient is progressing back to baseline - Discharge Instructions Follow Up With: Jenny Mccann DO [Primary Care Provider] - - Diet and Activity Activity: as per physical therapy, increase activity as tolerated Diet: advance to your usual diet - VTE Documentation of Mechanical Device: Graduated compression elastic hosiery
--- NOTE | 2018-03-01 11:47 | Physician Discharge Referral ---
Home Health/Hosp Referral Info Transfer to: Home Health Provider in Charge Post Discharge: PCP - Diagnosis (1) Status post reverse total replacement of left shoulder Priority: Primary Status: Acute (2) HTN (hypertension) Priority: Secondary Status: Chronic - Respiratory Orders Smoking Cessation: Smoking cessation has been advised. For more information, call the [place] Tobacco Quit Line at 1-469-XJNN-NOW. - Diet/Nutrition Diet/Nutrition Orders: Regular, No Added Salt (SOFI) - Activity Activity Orders: Up ad lawanda - Services Needed Following services are medically necessary services: Nursing, Physical Therapy, Occupational Therapy - Transfer Medications Home Medications: Alendronate Sodium 70 mg PO MO 02/19/18 [History] Atorvastatin Calcium [Lipitor] 20 mg PO HS 02/19/18 [History] Celecoxib [Celebrex] 200 mg PO DAILY 02/19/18 [History] Cholecalciferol (D-3) [Vitamin D] 2,000 unit PO DAILY 02/19/18 [History] Clopidogrel [Plavix] 75 mg PO DAILY 02/19/18 [History] Glucosamine Sulfate Dipot Chlr [Glucosamine] 1,000 mg PO DAILY 02/19/18 [History] Latanoprost [Xalatan] 1 drop BOTH EYES HS 02/19/18 [History] Lisinopril [Zestril] 20 mg PO DAILY 02/19/18 [History] Loratadine [Allergy Relief] 10 mg PO DAILY 02/19/18 [History] Multivitamin [One Daily Essential] 1 tab PO DAILY 02/19/18 [History] Oxybutynin Chloride [Ditropan Xl] 10 mg PO DAILY 02/19/18 [History] Timolol Maleate 0.5% 1 drop BOTH EYES BID 02/19/18 [History] Ubidecarenone/Vit E Acetate [Co Q-10 100 mg Softgel] 1 cap PO DAILY 02/19/18 [History] OxyCODONE Immed Rel [Roxicodone 5 MG] 5 mg PO Q4HR PRN MDD PAin 02/22/18 [History] Allergies/Adverse Reactions: Allergy/AdvReac Type Severity Reaction Status Date / Time bromide salts Allergy Hives Verified 02/19/18 07:34 fentanyl AdvReac Rash Verified 02/19/18 07:34 Certification: Further, I certify that my clinical findings support that this patient is homebound (i.e. absences from home require considerable and taxing effort and are for medical reasons or jehovah's witness services or infrequently or short duration when for other reasons) because: Homebound Reason: Post-surgery restriction and or conditions limit ability to leave home Attestation: My signature below is to certify that this patient is under my care and that I, or nurse practitioner, or a physician's assisted living assistant working with me, has a [id number] encounter with this patient.
== END 2018-03-01 13:05 | disposition home health service (06) | DRG 561 ==
LOC: INPGRE 19:07